=== PATIENT | male | born 1940 | race Caucasian/White ===

== ENCOUNTER 2019-04-18 12:35 | Outpatient (CLI) | payer MEDICARE, SELFPAY ==
--- NOTE | 2019-04-18 | USCV_ITS ---
To Do Age: 78 Gender: M : 1940 Exam Date: 04/18/2019 13:35 Ordering Phys: Janina Zhang MD Technologist: KAMILLA ARNOLD Exam Location: [facility] – [place] Indication: RIGHT SIDED WEAKNESS BP: 187 / 89 HR: 84 Rhythm: Sinus Technical Quality: Adequate MEASUREMENTS (Male / Female) Normal Values 2D ECHO LV Diastolic Diameter PLAX 4.2 cm 4.2 - 5.9 / 3.9 - 5.3 cm LV Systolic Diameter PLAX 3.0 cm IVS Diastolic Thickness 1.5 cm 0.6 - 1.0 / 0.6 - 0.9 cm IVS Systolic Thickness 1.9 cm LVPW Diastolic Thickness 1.6 cm 0.6 - 1.0 / 0.6 - 0.9 cm LVPW Systolic Thickness 1.9 cm LVOT Diameter 2.1 cm LV Ejection Fraction 2D Teich 55.0 % LV Ejection Fraction MOD 2C 57.2 % LV Ejection Fraction 2C AL 56.8 % LA Diameter 4.0 cm LA Width 3.8 cm LA Height 4.6 cm RA Width 3.5 cm RA Height 4.7 cm Aorta at Sinotubular Diameter 3.0 cm M-MODE LV Diastolic Diameter MM 4.9 cm 4.2 - 5.9 / 3.9 - 5.3 cm LV Systolic Diameter MM 3.4 cm LV Ejection Fraction MM Teich 55.9 % IVS Diastolic Thickness MM 1.5 cm 0.6 - 1.0 / 0.6 - 0.9 cm IVS Systolic Thickness MM 2.1 cm LVPW Diastolic Thickness MM 1.5 cm 0.6 - 1.0 / 0.6 - 0.9 cm LVPW Systolic Thickness MM 1.9 cm Aortic Annulus Diameter 3.6 cm LA Ao Ratio MM 1.1 MV E Point Septal Separation 0.7 cm DOPPLER AV Peak Velocity 145.0 cm/s LVOT Peak Velocity 75.0 cm/s AV Area Cont Eq vti 1.8 cm squared AV Area Cont Eq pk 1.7 cm squared MV Area PHT 4.8 cm squared Mitral E to A Ratio 0.4 MV E' Velocity 5.0 cm/s Mitral E to MV E' Ratio 14.7 Mitral E to LV E' Lateral Ratio 11.5 Mitral E to LV E' Septal Ratio 20.2 TV Peak E Velocity 56.0 cm/s Right Atrial Pressure 3.0 mmHg PV Peak Velocity 77.0 cm/s RV Acceleration Time 0.1 s RV Ejection Time 0.3 s RV AcT/ET 0.5 FINDINGS Left Ventricle Normal left ventricular size and systolic function, EF 55 %. Moderate left ventricular hypertrophy. Grade I/IV diastolic dysfunction (abnormal relaxation filling pattern), normal to mildly elevated filling pressures. Right Ventricle Normal right ventricular size and systolic function. Right Atrium Normal right atrial size. Left Atrium Mildly increased left atrial size. Mitral Valve Thickened mitral valve. Mild mitral annular calcification. Aortic Valve Thickened aortic valve. Tricuspid Valve No gross abnormalities noted Pulmonic Valve No gross abnormalities noted Pericardium No pericardial effusion. Aorta Normal aortic annulus size. CONCLUSIONS Normal left ventricular size and systolic function, EF 55 %. No gross wall motion normalities noted Moderate left ventricular hypertrophy. Grade I/IV diastolic dysfunction (abnormal relaxation filling pattern), normal to mildly elevated filling pressures. Mildly increased left atrial size. Thickened mitral valve. Mild mitral annular calcification. Thickened aortic valve. There is no pericardial effusion. There are no intracardiac masses. No previous study is available for comparison. Dr Hugo Mccullough MD [facility] (Electronically Signed) Final Date: 19 April 2019 15:46 S
--- NOTE | 2019-04-18 12:45 | USCV_ITS ---
Do Kathywilli Age: 78 Gender: M : 1940 Exam Date: 04/18/2019 12:47 Ordering Phys: Janina Zhang MD Technologist: Meghana Allen Exam Location: [facility] [place]ication: CVA. RIGHT SIDED WEAKNESS Risk Factors: Previous Vascular Surgery: Right Brachial BP: / Left Brachial BP: / Right Left Velocity (cm/s) Spectral Plaque Velocity (cm/s) Spectral Plaque Syst/Diast Broadening Syst/Diast Broadening 59.50/ 7.10 Prox CCA 107.80/ 15.80 39.90/ 10.50 Mid CCA 61.40 / 13.20 47.40/ 11.60 Distal CCA 50.50 / 10.90 51.20/ 13.10 Prox ICA 31.60 / 10.50 49.10/ 15.70 Mid ICA 53.90 / 20.40 42.30/ 15.10 Distal ICA 61.00 / 20.60 96.40 ECA 61.50 1.28 ICA/CCA 0.99 Antegrade Vertebral Not Visualized 33.50/ 11.80 cm/s / cm/s Bi Subclavian Bi 94.70 158.5 0 FINDINGS Minimal plaques at the bifurcations and proximal internal carotid arteries bilaterally. Intimal thickening in the common carotid arteries bilaterally. Antegrade flow in the vertebral artery on the right side. Left vertebral artery could not be visualized Normal Doppler flow velocities in the external carotid arteries bilaterally CONCLUSIONS Minimal plaques at the bifurcations and proximal internal carotid arteries bilaterally with no evidence of any significant stenosis. Intimal thickening in the common carotid arteries bilaterally. Left vertebral artery could not be visualized No previous studies are available for comparison. Dr Hugo Mccullough MD [facility] (Electronically Signed) Final Date: 19 April 2019 15:41 S
== END 2019-04-18 12:36 | disposition home or self-care (01) ==
PROVIDERS: Family Provider Family Medicine; PCP Family Medicine; Visit Provider Family Medicine
DX: I63.9 Cerebral infarction, unspecified (principal); R53.1 Weakness; I51.7 Cardiomegaly; I70.0 Atherosclerosis of aorta; I61.2 Nontraumatic intracerebral hemorrhage in hemisphere, unspecified; I10 Essential (primary) hypertension
CPT/HCPCS: 93306; 93880

== ENCOUNTER 2019-04-21 12:01 | Outpatient (CLI) | payer MEDICARE, SELFPAY ==
--- NOTE | 2019-04-21 12:00 | CT_ITS ---
WS: [id number] CT scan of the head, 04/21/2019 Clinical Data: cva Comparison: None. DLP: 912.[address] scans at [facility] use at least one of these dose optimization techniques: automat ed exposure control; mA and/or kV adjustment per patient size (includes targeted exams where dose is matched to clinical indication); or iterative reconstruction. Findings: The ventricular system is slightly dilated without shift. There is a small intracerebral hemorrhage m easuring 1.52 cm in the deep white matter of the left parietal lobe.. There are no abnormal intracere bral masses. The cerebellum and brainstem are not remarkable. Bony windows of the skull and skull base show no fractures or erosions. The mastoid air cells, fashion intern al auditory canals, sella turcica, intraorbital contents, and paranasal sinuses are unremarkable. CT/CT head wo con* [id number] Impression: 1. Small left intracerebral hematoma. 2. Moderate cerebral atrophy.
== END 2019-04-21 12:02 | disposition home or self-care (01) ==
LOC: RAD 12:07
PROVIDERS: Family Provider Family Medicine; PCP Family Medicine; Visit Provider Family Medicine
DX: I63.9 Cerebral infarction, unspecified (principal); I61.9 Nontraumatic intracerebral hemorrhage, unspecified; G31.9 Degenerative disease of nervous system, unspecified
CPT/HCPCS: 70450

== ENCOUNTER → 2019-09-03 10:32 | Outpatient (BNVA) | payer MEDICARE, SELFPAY | PROVIDERS: Family Provider Family Medicine; PCP Family Medicine; Referring Provider Family Medicine; Visit Provider Family Medicine | DX: I10 Essential (primary) hypertension (principal); I61.2 Nontraumatic intracerebral hemorrhage in hemisphere, unspecified; F90.2 Attention-deficit hyperactivity disorder, combined type | CPT/HCPCS: 80053; 85025 ==

== ENCOUNTER → 2021-05-10 14:44 | Outpatient (BNVA) | payer MEDICARE, SELFPAY | PROVIDERS: Family Provider Family Medicine; PCP Family Medicine; Visit Provider Family Medicine | DX: F98.8 Other specified behavioral and emotional disorders with onset usually occurring in childhood and adolescence (principal); I10 Essential (primary) hypertension; Z00.00 Encounter for general adult medical examination without abnormal findings; R73.9 Hyperglycemia, unspecified | CPT/HCPCS: 80053; 85025 ==

== ENCOUNTER → 2021-05-11 07:57 | Outpatient (BNVA) | payer MEDICARE, SELFPAY | PROVIDERS: Family Provider Family Medicine; PCP Family Medicine; Visit Provider Family Medicine | DX: R73.9 Hyperglycemia, unspecified (principal); I10 Essential (primary) hypertension | CPT/HCPCS: 83036 ==

== ENCOUNTER → 2022-09-13 12:25 | Outpatient (BNVA) | payer MEDICARE, SELFPAY | PROVIDERS: Family Provider Family Medicine; PCP Family Medicine; Visit Provider Family Medicine | DX: E11.9 Type 2 diabetes mellitus without complications (principal); F98.8 Other specified behavioral and emotional disorders with onset usually occurring in childhood and adolescence; I10 Essential (primary) hypertension | CPT/HCPCS: 80053; 83036; 85025 ==